=== PATIENT | male | born 2000 | race Two or more races ===

== ENCOUNTER 2024-01-14 12:27 | Emergency (ER) | payer MEDICAID, OTHER ==
[~2024-01-14] VITALS: Ht 165.1 cm; Wt 94.1 kg
[2024-01-14 14:10] VITALS: BP 134/89
[2024-01-14 14:11] VITALS: PULSE 74; RESP 14; O2SAT 99
== END 2024-01-14 14:18 | disposition home or self-care (01) ==
LOC: ER 12:27
DX: F41.9 Anxiety disorder, unspecified (principal); R00.2 Palpitations
CPT/HCPCS: 36415; 85379; 93005